=== PATIENT | female | born 1945 | race Caucasian/White ===

== ENCOUNTER 2025-07-18 10:55 | Emergency (ER) | payer BC, MEDICARE ==
[~2025-07-18] VITALS: Ht 167.6 cm; Wt 70.0 kg
[~2025-07-18 10:55] MED LIST: AMIT50TA15 PO; CITA40TA22 PO; GABA300C PO; HYDR-4353 PO; TRAZ150T78 PO
[2025-07-18 11:10] VITALS: BP 104/70; PULSE 89; RESP 17; TEMP 97.9; O2SAT 95
--- NOTE | 2025-07-18 11:43 | Physician Documentation ---
History of Present Illness ~ Chief Complaint: Urinary Symptoms Stated Complaint: URINARY COMPLICATIONS Time Seen by MD: 11:29 OK to notify your PCP?: Yes Primary Medical Doctor: JASMIN DIAZ Source: patient Mode of Arrival: POV Exam Limitations: no limitations HPI 80-year-old female here with due to concern about pain with urination. Patient has a fairly complicated history with regards to recurrent urinary tract infections, at neurogenic bladder, urinary incontinence. Patient is supposed to be self catheterizing once a day but states that she was not sent with the enough catheters and is currently waiting for more. The last time she self catheterization was two days ago. She does use the PureWick device when she is sleeping and taking a nap. She is seen by Dr. Avalos for her symptoms. She also has a bladder pacemaker but this is pending removal as it has not been effective. She states I am just worried about going septic because that is what my mom of. She denies fever, nausea, abdominal pain, flank pain, vomiting. She currently is on antibiotics but states that her last dosage will be tonight and she is thinking that she needs this to be renewed since symptoms have not resolved. This will be her 2nd course either same antibiotic. Medication Reconciliation Allergies: Coded Allergies: No Known Allergies (Unverified , 08/23/14) Scheduled Amitriptyline Hcl* (Elavil*), 1 TAB PO HS, (Reported) Citalopram Hydrobromide (Celexa), 1 TABLET PO DAILY, (Reported) Gabapentin (Neurontin), 1 CAP PO BID, (Reported) Hydrocodone Bit/Acetaminophen ([place] 10-325 Tablet), 1 TABLET PO QID, (Reported) Trazodone Hcl (Trazodone Hcl), 0.25 TABLET PO HS, (Reported) Past Medical History Past Medical History: GERD, Peptic Ulcer Disease, Chronic Pain Past Surgical History: no surgical history Alcohol Use: None Drug Use: none Lives with: Spouse Review of Systems All Other Systems at this time: Reviewed and Negative Physical Exam Vital Signs: Temperature: 97.9, Source: Oral, Heart Rate: 89, Respiratory Rate: 17, BP: 104/70, Pulse Oximetry: 95, Weight: 70.000 Physical Exam GENERAL: Alert, no acute distress. HEENT: NCAT, EOMI, PERRL, normal oropharynx, moist oral mucosa. NECK: Supple, trachea midline. CARDIAC: Regular rate and rhythm, no murmurs, rubs, or gallops. Equal distal pulses. No lower extremity edema, cap refill less than 2 seconds. RESPIRATORY: Equal breath sounds, clear to auscultation bilaterally, no respiratory distress. GASTROINTESTINAL: Non distended, soft, NTTP, no cva ttp, No guarding or rebound. MUSCULOSKELETAL: Normal range of motion, nontender, no swelling. Normal gait. NEUROLOGICAL: Awake, alert, and oriented x 3. SKIN: Warm/dry, no pallor, no rash. PSYCH: Alert and appropriate. Affect congruent with mood. Speech is clear. Good eye contact. Progress Results/Orders Results/Orders Vital Signs 07/18/25 11:10 Temp 97.9 Pulse 89 Resp 17 B/P (MAP) 104/70 Pulse Ox 95 Laboratory Tests Test 07/18/25 12:07 Urine Specimen Description Straight cath Urine Color Yellow Urine Clarity Slightly cloudy Urine pH 6.5 Urine Specific [place] 1.015 Urine Protein Negative Urine Glucose (UA) Negative Urine Ketones Negative Urine Occult Blood Trace-intact Urine Nitrite Negative Urine Bilirubin Negative Urine Urobilinogen 0.2 Urine Leukocyte Esterase Large H Urine RBC 3-10 Urine WBC Tntc H Urine Squamous Epithelial Cells Few Urine Transitional Epithelial Cells Few Urine Renal Cells Few Urine Bacteria Few Urine Mucus Few Urine Culture Indicated Indicated Volume Urine Centrifuged 10 ml Urine Comment Medical Decision Making Additional information obtaine: N/A Findings n/a Urinary Diff Dx:Considerations: Include: AAA, , Aortic dissection, Appendicitis, Bowel obstruction, Cholelithiasis, Choleangitis, DJD, Ectopic , Hepatitis, HNP, Impaction, Intrauterine , Musculoskeletal pain, Ovarian torsion, Pancreatitis, PID, Post-Op complication, Pyelonephritis, Renal failure, Strain, Urinary Obstruction, Urolithiasis, Urinary retention, UTI, Vaginitis, Other Genital Diff Dx:Considerations: Include: -Complete, - Incomplete, -Inevitable, Ablortion-Missed, -Threatened, Abruptio placentae, Bartholin abscess, Bartholin cyst, Blood loss anemia, Constipation, Cervicitis, Dsymenorrhea, Ectopic , Foreign body, Hormonal, Hidradenitis suppurativa, Intrauterine , Menorrhagia, Menometrorrhagia, Menstrual bleeding, Myomatous uterus, Perianal abscess, Physiologic discharge, Pinworms, PID, Placenta previa, , Precipitous Hct, Trauma, UTI, Vaginitis(osis)-Atrophic, Vaginitis, Vaginitis(osis)-Bacterial, Vaginitis(osis)- Candidal, Vaginitis(osis)-Contact, Vaginitis(osis)-Herpes, Vaginitis(osis)- Trich., Other Additional Comment We bladder scan the patient to make sure there was not significant postvoid residual given her neurogenic bladder and the fact that she states she has not been able to self cath due to running out of supplies and waiting on more supplies. Bladder ultrasound here in the ER showed postvoid residual of 110cc. Departure Time of Disposition: 11:43 Disposition: 01 HOME / SELF CARE / HOMELESS Impression: Primary Impression: UTI (urinary tract infection) Qualified Codes: N30.00 - Acute cystitis without hematuria Additional Impression: Neurogenic bladder Condition: Stable Discharge Instructions: Urinary Tract Infection, Adult Additional Instructions: F/U WITH YOUR PCP I SENT ANOTHER PRESCRIPTION OF ANTIBIOTICS THE URINE OBTAINED TODAY BY CATH WAS ALSO POSITIVE FOR INFECTION Referrals: NO PRIMARY CARE PROVIDER (PCP) Prescriptions Cefpodoxime Proxetil (Cefpodoxime Proxetil) 100 Mg Tablet 1 TAB PO Q12H for 7 Days, #14 TAB 0 Refills Prov: MARIA DE JESUS GREENE 07/18/25 Education Educated: Patient Educated regarding: diagnosis, treatment, need for follow up Signature Scribe Signature: x Attestation: MARIA DE JESUS Rojas Jul 18, 2025 11:43
[2025-07-18 12:28] LABS: LEUKOCYTE ESTERASE ,URINE LARGE (Neg); NITRITES, URINE NEGATIVE (Neg); OCCULT BLOOD,URINE TRACE-INTACT (Neg)
[2025-07-18 12:43] LABS: UA COLLECTION TYPE STRAIGHT CATH
[2025-07-18 12:45] LABS: MUCUS STRANDS FEW /LPF (Neg); RENAL CELLS, URINE FEW /HPF; SQUAMOUS EPITHELIAL CELL,UR FEW /LPF (FEW)
[2025-07-18] MEDS ORDERED: CEFP100T7 PO (13:18)
[2025-07-21] MEDS ORDERED: AMOX-117 PO (20:17)
== END 2025-07-18 13:26 | disposition home or self-care (01) ==
LOC: ER 10:55
DX: N39.0 Urinary tract infection, site not specified (principal); N31.9 Neuromuscular dysfunction of bladder, unspecified; G89.29 Other chronic pain; K21.9 Gastro-esophageal reflux disease without esophagitis; Z87.440 Personal history of urinary (tract) infections; Z87.11 Personal history of peptic ulcer disease; Z79.899 Other long term (current) drug therapy
CPT/HCPCS: 51798; 81001; 87077; 87088; 87186; 99284; C1758